=== PATIENT | female | born 1940 | race Caucasian/White ===

== ENCOUNTER 2021-03-11 15:39 | Emergency (ER) | payer MEDICARE, OTHER ==
[~2021-03-11] VITALS: Ht 154.9 cm; Wt 65.8 kg
[2021-03-11 15:43] VITALS: BP 151/104
[2021-03-11] MEDS ORDERED: ACETAMIN/CODEINE 120/12MG-5ML 5 ML UDC PO ONE (16:15)
[2021-03-11] MEDS ORDERED: ALBUTEROL HFA MDI 90 MCG/ACTUATION 8 GM INH ONE ×2 (16:15→17:18)
[2021-03-11 16:27] LABS: BASOPHILS % (AUTO) 0.4 % (0.0-2.0); EOSINOPHILS # (AUTO) 0.1 K/uL (0-0.4); EOSINOPHILS % (AUTO) 0.6 % (0.0-4.0); HEMATOCRIT 44.5 % (36-48); HEMOGLOBIN 15.3 g/dL (12.0-16.0); LYMPHOCYTES # (AUTO) 1.7 K/uL (2.5-16.5); LYMPHOCYTES % (AUTO) 15.9 % (20.5-51.1); MEAN CORPUSCULAR HEMOGLOBIN 34 pg (27-31); MEAN CORPUSCULAR HGB CONC 34 g/dL (33-37); MEAN CORPUSCULAR VOLUME 97.7 fL (80-94); MONOCYTES # (AUTO) 0.7 K/uL (0.8-1.0); MONOCYTES % (AUTO) 6.2 % (1.7-9.3); NEUTROPHILS # (AUTO) 8.4 K/uL (1.8-7.7); NEUTROPHILS % (AUTO) 76.9 % (42.2-75.2); PLATELET COUNT (AUTO) 265 K/uL (140-450); RED BLOOD CELL COUNT(AUTO) 4.55 MIL/uL (4.20-5.40); RED CELL DISTRIBUTION WIDTH 13.2 % (11.6-13.7); WHITE BLOOD COUNT (AUTO) 10.9 K/uL (4.8-10.8)
[2021-03-11 17:18] LABS: ALBUMIN 3.4 g/dL (3.4-5.0); ASPARTATE AMINOTRANSFERASE 44 U/L (15-37); CARBON DIOXIDE 23.9 mmol/L (21-32); CREATININE 0.8 mg/dL (0.6-1.3); GLUCOSE 96 mg/dL (74-106); TOTAL BILIRUBIN 0.5 mg/dL (0.0-1.0); UREA NITROGEN, BLOOD 23 mg/dL (7-18)
[2021-03-11] MEDS ORDERED: ACETAMIN/CODEINE 120/12MG-5ML 5 ML UDC ONE (17:18)
[2021-03-11 17:51] LABS: ANION GAP 17.4 (8-16); CHLORIDE 103 mmol/L (98-107); POTASSIUM 5.3 mmol/L (3.5-5.1); SODIUM SERUM 139 mmol/L (136-145)
[2021-03-11] MEDS ORDERED: ED NON STOCK ORDER 1 EA MISC IV ONE (18:10)
[2021-03-11] MEDS ORDERED: SOTROVIMAB 500 MG in NACL 0.9% 50 ML IV ONE (18:25)
[2021-03-11] MEDS ORDERED: SOTROVIMAB 500 MG/8 ML VIAL IV ONE (18:28)
[2021-03-11] MEDS ORDERED: APIXABAN 2.5 MG TAB PO ONE (19:10)
[2021-03-11] MEDS ORDERED: ALBU0.0912 IH (19:15)
[2021-03-11] MEDS ORDERED: APIX2.5 PO (19:15)
[2021-03-11] MEDS ORDERED: ROBAC PO (19:15)
--- NOTE | 2021-03-11 19:22 | NUR ---
pt verbalizes dc instructions no acute distress noted. stable on dc
[2021-03-11 19:23] VITALS: BP 141/70
--- NOTE | 2021-03-15 16:35 | NUR ---
LATE ENTRY- SOTROVIMAB DISCONTINUED AT 1921.
== END 2021-03-11 19:20 | disposition home or self-care (01) ==
LOC: MED 15:39
DX: U07.1 COVID-19 (principal); J44.9 Chronic obstructive pulmonary disease, unspecified; I48.91 Unspecified atrial fibrillation; F17.210 Nicotine dependence, cigarettes, uncomplicated; Z79.899 Other long term (current) drug therapy
CPT/HCPCS: 36415; 71045; 80053; 83735; 83880; 84484; 85025; 93005; 99285; J3535; 96365